=== PATIENT | female | born 1950 | race Caucasian/White ===

== ENCOUNTER → 2023-05-25 06:26 | Day surgery (SDC) | payer MEDICARE, BC, SELFPAY | LOC: GI 06:26 | PROVIDERS: ATTENDING PHYSICIAN Internal Medicine Gastroenterology; FAMILY PHYSICIAN Internal Medicine | DX: Z09 Encounter for follow-up examination after completed treatment for conditions other than malignant neoplasm (principal); Z86.010 Personal history of colon polyps; Z98.890 Other specified postprocedural states; K63.5 Polyp of colon | CPT/HCPCS: 45385; 45380; 88305 ==

== ENCOUNTER → 2023-06-02 10:06 | Outpatient (REF) | payer MEDICARE, BC, SELFPAY | LOC: RAD 10:06 | PROVIDERS: ATTENDING PHYSICIAN Internal Medicine | DX: M85.89 Other specified disorders of bone density and structure, multiple sites (principal) | CPT/HCPCS: 77080 ==

== ENCOUNTER → 2023-11-17 13:40 | Outpatient (REF) | payer MEDICARE, BC, SELFPAY | LOC: RAD 13:40 | PROVIDERS: ATTENDING PHYSICIAN Internal Medicine | DX: R05.1 Acute cough (principal) | CPT/HCPCS: 71046 ==

== ENCOUNTER → 2023-12-01 08:38 | Outpatient (REF) | payer MEDICARE, BC, SELFPAY | LOC: RAD 08:38 | PROVIDERS: ATTENDING PHYSICIAN Internal Medicine | DX: J18.9 Pneumonia, unspecified organism (principal) | CPT/HCPCS: 71046 ==

== ENCOUNTER → 2023-12-17 10:13 | Outpatient (REF) | payer MEDICARE, BC, SELFPAY | LOC: RAD 10:13 | PROVIDERS: ATTENDING PHYSICIAN Internal Medicine | DX: J18.9 Pneumonia, unspecified organism (principal) | CPT/HCPCS: 71046 ==

== ENCOUNTER → 2023-12-25 09:20 | Outpatient (REF) | payer MEDICARE, BC, SELFPAY | LOC: HWRAD 09:20 | PROVIDERS: ATTENDING PHYSICIAN Internal Medicine | DX: R93.89 Abnormal findings on diagnostic imaging of other specified body structures (principal) | CPT/HCPCS: 71260; Q9967 ==

== ENCOUNTER → 2024-03-18 08:26 | Outpatient (REF) | payer MEDICARE, BC, SELFPAY | LOC: HWRAD 08:26 | PROVIDERS: ATTENDING PHYSICIAN Internal Medicine | DX: R93.89 Abnormal findings on diagnostic imaging of other specified body structures (principal) | CPT/HCPCS: 71260; Q9967 ==

== ENCOUNTER → 2024-04-05 12:19 | Outpatient (REF) | payer MEDICARE, BC, SELFPAY | LOC: WDC 12:19 | PROVIDERS: ATTENDING PHYSICIAN Obstetrics & Gynecology Gynecology; FAMILY PHYSICIAN Internal Medicine | DX: Z12.31 Encounter for screening mammogram for malignant neoplasm of breast (principal) | CPT/HCPCS: 77063; 77067 ==

== ENCOUNTER 2024-05-30 06:22 | Day surgery (SDC) | payer MEDICARE, BC, SELFPAY | END 2024-05-30 09:04 | disposition home or self-care (01) | LOC: GI 06:22 | PROVIDERS: ATTENDING PHYSICIAN Internal Medicine Gastroenterology; FAMILY PHYSICIAN Internal Medicine | DX: Z12.11 Encounter for screening for malignant neoplasm of colon (principal); K63.5 Polyp of colon; K64.8 Other hemorrhoids; Z86.0101 Personal history of adenomatous and serrated colon polyps; Z98.890 Other specified postprocedural states | CPT/HCPCS: 45385; 45380; 88305 ==

== ENCOUNTER → 2025-01-30 12:27 | Outpatient (REF) | payer MEDICARE, BC, SELFPAY | LOC: RAD 12:27 | PROVIDERS: ATTENDING PHYSICIAN Student in an Organized Health Care Education/Training Program; FAMILY PHYSICIAN Internal Medicine | DX: M15.9 Polyosteoarthritis, unspecified (principal); M25.469 Effusion, unspecified knee; M25.50 Pain in unspecified joint; M79.671 Pain in right foot; M79.672 Pain in left foot | CPT/HCPCS: 73560; 73565; 73630 ==

== ENCOUNTER → 2025-03-28 15:17 | Outpatient (REF) | payer MEDICARE, BC, SELFPAY | LOC: WDC 15:17 | PROVIDERS: ATTENDING PHYSICIAN Obstetrics & Gynecology Gynecology; FAMILY PHYSICIAN Internal Medicine | DX: Z12.31 Encounter for screening mammogram for malignant neoplasm of breast (principal) | CPT/HCPCS: 77063; 77067 ==